=== PATIENT | male | born 1935 | race Caucasian/White ===

== ENCOUNTER 2017-06-10 10:32 | Inpatient (IN) | payer OTHER ==
[~2017-06-10] VITALS: Ht 185.4 cm; Wt 77.8 kg
[~2017-06-10 10:32] MED LIST: ALBU90OI INH; ALLO300 PO; AMOCLA875 PO; AMOX500 PO; ASPI81EC; Aspirin EC81 MG PO; CLARITIN10 MG PO; CYCL1OPSOA OP; DOXA4 PO; FLONASE ALLERG9.9 ML; FOSI10; FOSI10 PO; GABA300 PO; GLIM2 PO; HUMALOG KW200 UNIT/1; HYDACE5 PO; HYDR1TAB94 PO; HYDRA50 PO; METF850 PO; NAPR500 PO; OMEP20ER; OXYACE5T PO; PANT40 PO; PRED20 PO; SIMV10 PO; SULTRIDS PO; TAMS.4ER PO; TOBR.3OPSO OP; TOUJEO SOL300 UNIT/1 SC
[2017-06-10 12:08] LABS: BASOPHILS ABSOLUTE AUTO 0.04 K/mm3 (0.00-0.23); BASOPHILS PERCENT AUTO 1 % (0-2); EOSINOPHILS ABSOLUTE AUTO 0.28 K/mm3 (0.00-0.68); EOSINOPHILS PERCENT AUTO 5 % (0-6); Hematocrit 39.7 % (37.0-53.0); IMMATURE GRAN ABSOLUTE AUTO 0.01 K/mm3 (0.00-0.10); IMMATURE GRAN PERCENT AUTO 0 % (0-1); LYMPHOCYTES ABSOLUTE AUTO 1.09 K/mm3 (0.84-5.20); LYMPHOCYTES PERCENT AUTO 19 % (21-46); MONOCYTES ABSOLUTE AUTO 0.28 K/mm3 (0.16-1.47); MONOCYTES PERCENT AUTO 5 % (4-13); Mean Corpuscular HGB 29.4 pg (26.0-34.0); Mean Corpuscular HGB Conc 32.7 g/dL (31.5-36.5); Mean Corpuscular Volume 90 fL (80-100); Mean Platelet Volume 11.1 fL (9.1-12.4); NEUTROPHILS ABSOLUTE AUTO 4.08 K/mm3 (1.96-9.15); NEUTROPHILS PERCENT AUTO 71 % (41-73); Platelet Count 169 K/mm3 (150-400); RDW Coefficient Variation 13.1 % (11.7-14.2); RDW Standard Deviation 42.7 fL (35.1-46.3); Red Blood Cell Count 4.42 M/mm3 (4.30-5.90); White Blood Cell Count 5.78 K/mm3 (4.00-11.30)
[2017-06-10] MEDS ORDERED: METF850 PO (12:20)
[2017-06-10 12:25] LABS: Alanine Aminotransfer (ALT/SGP 24 U/L (12-78); Albumin, Blood 3.6 g/dL (3.4-5.0); Alk Phos 57 U/L (50-136); Anion Gap 8 mmol/L (6-16); Aspartate Aminotrans (AST/SGOT 13 U/L (12-37); Bilirubin, Total 0.3 mg/dL (0.1-1.0); Blood Urea Nitrogen 19 mg/dL (8-24); Bun/Creatinine Ratio 19.3 (12.0-20.0); CO2, Blood 24 mmol/L (21-32); Chloride, Blood 105 mmol/L (98-108); Creatinine, Blood 0.99 mg/dL (0.60-1.20); Globulin, Blood 3.7 g/dL (2.2-4.0); Glomerular Filtration Rate >60 (60-); Glucose, Blood 230 mg/dL (70-99); Potassium, Blood 4.9 mmol/L (3.5-5.5); Sodium, Blood 137 mmol/L (136-145); Total Protein, Blood 7.3 g/dL (6.4-8.2)
[2017-06-10 12:39] LABS: Source, Urine Clean Catch
[2017-06-10 12:48] LABS: Bilirubin, Urine Neg (Neg); Blood, Urine Neg (Neg); Glucose Qualitative, Urine 1+ (Neg); Ketones, Urine Neg (Neg); Leukocyte Esterase, Urine Neg (Neg); Nitrite, Urine Neg (Neg); Protein, Urine 1+ (Neg); Urobilinogen, Urine NORM (Normal)
[2017-06-10 13:01] LABS: Appearance, Urine Clear (Clear); Color, Urine Yellow (P-Yellow)
[2017-06-11 05:29] LABS: BASOPHILS ABSOLUTE AUTO 0.03 K/mm3 (0.00-0.23); BASOPHILS PERCENT AUTO 1 % (0-2); EOSINOPHILS ABSOLUTE AUTO 0.33 K/mm3 (0.00-0.68); EOSINOPHILS PERCENT AUTO 7 % (0-6); Hematocrit 36.3 % (37.0-53.0); Hemoglobin 11.6 g/dL (13.5-17.5); IMMATURE GRAN ABSOLUTE AUTO 0.02 K/mm3 (0.00-0.10); IMMATURE GRAN PERCENT AUTO 0 % (0-1); LYMPHOCYTES ABSOLUTE AUTO 1.16 K/mm3 (0.84-5.20); LYMPHOCYTES PERCENT AUTO 24 % (21-46); MONOCYTES PERCENT AUTO 6 % (4-13); Mean Corpuscular HGB 29.2 pg (26.0-34.0); Mean Corpuscular Volume 91 fL (80-100); Mean Platelet Volume 10.7 fL (9.1-12.4); NEUTROPHILS ABSOLUTE AUTO 2.97 K/mm3 (1.96-9.15); NEUTROPHILS PERCENT AUTO 62 % (41-73); Platelet Count 149 K/mm3 (150-400); RDW Coefficient Variation 13.3 % (11.7-14.2); RDW Standard Deviation 44.7 fL (35.1-46.3); Red Blood Cell Count 3.97 M/mm3 (4.30-5.90); White Blood Cell Count 4.81 K/mm3 (4.00-11.30)
[2017-06-11 06:00] LABS: Magnesium, Blood 1.8 mg/dL (1.6-2.4)
[2017-06-11 06:04] LABS: Anion Gap 8 mmol/L (6-16); Blood Urea Nitrogen 14 mg/dL (8-24); Bun/Creatinine Ratio 15.6 (12.0-20.0); CO2, Blood 25 mmol/L (21-32); Calcium, Blood 8.3 mg/dL (8.5-10.1); Chloride, Blood 110 mmol/L (98-108); Glomerular Filtration Rate >60 (60-); Glucose, Blood 96 mg/dL (70-99); Phosphorus, Blood 2.4 mg/dL (2.5-4.9); Potassium, Blood 4.4 mmol/L (3.5-5.5); Sodium, Blood 143 mmol/L (136-145)
[2017-06-12 04:37] LABS: Albumin, Blood 3.6 g/dL (3.4-5.0); Anion Gap 10 mmol/L (6-16); Blood Urea Nitrogen 14 mg/dL (8-24); Bun/Creatinine Ratio 15.3 (12.0-20.0); CO2, Blood 23 mmol/L (21-32); Calcium, Blood 9.2 mg/dL (8.5-10.1); Chloride, Blood 103 mmol/L (98-108); Creatinine, Blood 0.92 mg/dL (0.60-1.20); Glomerular Filtration Rate >60 (60-); Glucose, Blood 226 mg/dL (70-99); Magnesium, Blood 1.9 mg/dL (1.6-2.4); Phosphorus, Blood 1.3 mg/dL (2.5-4.9); Potassium, Blood 4.4 mmol/L (3.5-5.5); Sodium, Blood 136 mmol/L (136-145)
[2017-06-13 05:53] LABS: Anion Gap 8 mmol/L (6-16); Blood Urea Nitrogen 19 mg/dL (8-24); Bun/Creatinine Ratio 18.1 (12.0-20.0); CO2, Blood 25 mmol/L (21-32); Calcium, Blood 8.8 mg/dL (8.5-10.1); Chloride, Blood 106 mmol/L (98-108); Creatinine, Blood 1.05 mg/dL (0.60-1.20); Glomerular Filtration Rate >60 (60-); Glucose, Blood 91 mg/dL (70-99); Phosphorus, Blood 3.5 mg/dL (2.5-4.9); Sodium, Blood 139 mmol/L (136-145)
== END 2017-06-13 11:34 | disposition home or self-care (01) | DRG 440 ==
LOC: ER 10:32 → MEDS 13:37
PROVIDERS: Family Medicine; Hospitalist; Physician Assistant
DX: K85.90 Acute pancreatitis without necrosis or infection, unspecified (principal); E11.40 Type 2 diabetes mellitus with diabetic neuropathy, unspecified; E83.39 Other disorders of phosphorus metabolism; K21.9 Gastro-esophageal reflux disease without esophagitis; I10 Essential (primary) hypertension; Z79.84 Long term (current) use of oral hypoglycemic drugs; Z79.82 Long term (current) use of aspirin; Z79.4 Long term (current) use of insulin; Z79.51 Long term (current) use of inhaled steroids; Z79.899 Other long term (current) drug therapy; Z88.6 Allergy status to analgesic agent; Z88.8 Allergy status to other drugs, medicaments and biological substances; Z87.891 Personal history of nicotine dependence
CPT/HCPCS: 36415; 76705; 80048; 80053; 80069; 82947; 83690; 83735; 84100; 85025; 93005; 93010; 96374; 99285; C9113; J0360; J1170; J1650; J1815; J2405; J3480; J7030; J7040

== ENCOUNTER → 2017-06-26 | Outpatient (CLI) | payer OTHER | LOC: LAB 16:27 | DX: R10.9 Unspecified abdominal pain (principal) | CPT/HCPCS: 83690 ==

== ENCOUNTER → 2018-02-04 | Outpatient (CLI) | payer OTHER | END | disposition home or self-care (01) | LOC: PLD 15:03 → LAB SHORT 15:03 | DX: C44.320 Squamous cell carcinoma of skin of unspecified parts of face (principal) | CPT/HCPCS: 88305 ==

== ENCOUNTER 2018-05-05 07:27 | Day surgery (SDC) | payer OTHER ==
[~2018-05-05] VITALS: Ht 185.4 cm; Wt 88.3 kg
[2018-05-05] MEDS ORDERED: LOSA25 PO (08:01)
[2018-05-05] MEDS ORDERED: DOXA4 PO (08:02)
[2018-05-05] MEDS ORDERED: HYDR1TAB94 (08:02)
== END 2018-05-05 09:20 | disposition home or self-care (01) ==
LOC: ORSCSDS 07:27
PROVIDERS: Surgery
PROC: 0DBK8ZX Excision of Ascending Colon, Via Natural or Artificial Opening Endoscopic, Diagnostic (ICD-10-PCS; principal; 2018-05-05 08:30)
PROC: 0DBM8ZX Excision of Descending Colon, Via Natural or Artificial Opening Endoscopic, Diagnostic (ICD-10-PCS; principal; 2018-05-05 08:30)
DX: Z12.11 Encounter for screening for malignant neoplasm of colon (principal); D12.2 Benign neoplasm of ascending colon; D12.4 Benign neoplasm of descending colon; Z86.010 Personal history of colon polyps; E11.9 Type 2 diabetes mellitus without complications; Z79.82 Long term (current) use of aspirin; Z79.4 Long term (current) use of insulin; Z79.899 Other long term (current) drug therapy
CPT/HCPCS: 82947; 88305; J7120

== ENCOUNTER → 2018-08-06 | Outpatient (CLI) | payer OTHER ==
[~2018-08-06] MED LIST changes: +HYDR1TAB94; +LOSA25 PO
== END | disposition home or self-care (01) ==
LOC: LAB SHORT 12:53 → PLD 12:53
DX: L82.1 Other seborrheic keratosis (principal)
CPT/HCPCS: 88305

== ENCOUNTER → 2019-02-02 | Outpatient (CLI) | payer OTHER | END | disposition home or self-care (01) | LOC: PLD 13:26 → LAB SHORT 13:26 | DX: D48.5 Neoplasm of uncertain behavior of skin (principal) | CPT/HCPCS: 88305 ==

== ENCOUNTER → 2019-11-30 | Outpatient (CLI) | payer OTHER | END | disposition home or self-care (01) | LOC: LAB SHORT 15:25 → PLD 15:25 | DX: D04.39 Carcinoma in situ of skin of other parts of face (principal); L57.0 Actinic keratosis | CPT/HCPCS: 88305 ==

== ENCOUNTER → 2020-07-11 | Outpatient (CLI) | payer OTHER ==
[~2020-07-11] MED LIST changes: +ACYC400 PO; +AMLO5 PO; +ATOR40TA PO; +Aspir 8181 MG PO; +CELE200 PO; +FURO20 PO; +Flonase 0.05% N16 GM; +GLIM4 PO; +Glucophage 850850 MG PO; +HUMALOG100 UNIT/1; +INSULANI SC; +MULTIPLE VITAM1 EACH PO; +NITR.4SL SL; +Voltaren100 GM
[2020-07-11 13:36] LABS: BASOPHILS ABSOLUTE AUTO 0.04 K/mm3 (0.00-0.23); BASOPHILS PERCENT AUTO 1 % (0-2); EOSINOPHILS ABSOLUTE AUTO 0.38 K/mm3 (0.00-0.68); EOSINOPHILS PERCENT AUTO 6 % (0-6); IMMATURE GRAN ABSOLUTE AUTO 0.01 K/mm3 (0.00-0.10); IMMATURE GRAN PERCENT AUTO 0 % (0-1); LYMPHOCYTES ABSOLUTE AUTO 0.88 K/mm3 (0.84-5.20); LYMPHOCYTES PERCENT AUTO 14 % (21-46); MONOCYTES ABSOLUTE AUTO 0.26 K/mm3 (0.16-1.47); MONOCYTES PERCENT AUTO 4 % (4-13); Mean Corpuscular HGB 28.3 pg (26.0-34.0); Mean Corpuscular HGB Conc 31.7 g/dL (31.5-36.5); Mean Corpuscular Volume 89 fL (80-100); Mean Platelet Volume 11.6 fL (9.1-12.4); NEUTROPHILS ABSOLUTE AUTO 4.65 K/mm3 (1.96-9.15); NEUTROPHILS PERCENT AUTO 75 % (41-73); Platelet Count 238 K/mm3 (150-400); RDW Coefficient Variation 14.1 % (11.7-14.2); RDW Standard Deviation 45.1 fL (35.1-46.3); White Blood Cell Count 6.22 K/mm3 (4.00-11.30)
[2020-07-11 14:15] LABS: Alanine Aminotransfer (ALT/SGP 18 U/L (12-78); Albumin, Blood 3.8 g/dL (3.4-5.0); Albumin/Globulin Ratio 1.1 (0.8-1.8); Alk Phos 72 U/L (50-136); Anion Gap 6 mmol/L (6-16); Aspartate Aminotrans (AST/SGOT 17 U/L (12-37); Bilirubin, Total 0.6 mg/dL (0.1-1.0); Blood Urea Nitrogen 24 mg/dL (8-24); Bun/Creatinine Ratio 17.3 (12.0-20.0); CHOL/HDL RATIO 2.7; CO2, Blood 29 mmol/L (21-32); Calcium, Blood 9.4 mg/dL (8.5-10.1); Chloride, Blood 102 mmol/L (98-108); Cholesterol 113 mg/dL (50-200); Creatinine, Blood 1.39 mg/dL (0.60-1.20); Globulin, Blood 3.4 g/dL (2.2-4.0); Glomerular Filtration Rate 52 (60-); Glucose, Blood 249 mg/dL (70-99); HDL Cholesterol 42 mg/dL (>39); LDL/HDL RATIO 0.7; Low Density Lipoprotein Chol 29 mg/dL (0-110); Potassium, Blood 5.2 mmol/L (3.5-5.5); Sodium, Blood 137 mmol/L (136-145); Total Protein, Blood 7.2 g/dL (6.4-8.2); Triglycerides 211 mg/dL (30-160); Very Low Density Lipoprot Chol 42 mg/dL (6-32)
== END | disposition home or self-care (01) ==
LOC: LAB 11:15 → LAB SHORT 11:15
PROVIDERS: Registered Nurse
DX: E78.00 Pure hypercholesterolemia, unspecified (principal); E11.40 Type 2 diabetes mellitus with diabetic neuropathy, unspecified; R80.9 Proteinuria, unspecified; R60.9 Edema, unspecified; E11.42 Type 2 diabetes mellitus with diabetic polyneuropathy
CPT/HCPCS: 80053; 80061; 82043; 83036; 83880; 85025

== ENCOUNTER 2020-10-17 07:30 | Day surgery (SDC) | payer OTHER ==
[~2020-10-17] VITALS: Ht 185.4 cm; Wt 78.5 kg
== END 2020-10-17 09:31 | disposition home or self-care (01) ==
LOC: ORSCSDS 07:30
PROVIDERS: Surgery
PROC: 0DBM8ZX Excision of Descending Colon, Via Natural or Artificial Opening Endoscopic, Diagnostic (ICD-10-PCS; principal; 2020-10-17 08:45)
PROC: 0DBK8ZX Excision of Ascending Colon, Via Natural or Artificial Opening Endoscopic, Diagnostic (ICD-10-PCS; principal; 2020-10-17 08:45)
DX: R19.7 Diarrhea, unspecified (principal); D12.2 Benign neoplasm of ascending colon; D12.4 Benign neoplasm of descending colon; Z86.010 Personal history of colon polyps; E11.22 Type 2 diabetes mellitus with diabetic chronic kidney disease; I12.9 Hypertensive chronic kidney disease with stage 1 through stage 4 chronic kidney disease, or unspecified chronic kidney disease; N18.2 Chronic kidney disease, stage 2 (mild); Z79.4 Long term (current) use of insulin; Z79.899 Other long term (current) drug therapy; Z87.891 Personal history of nicotine dependence
CPT/HCPCS: 82947; 88305; J2704; J7120

== ENCOUNTER → 2020-11-22 | Outpatient (CLI) | payer OTHER ==
[2020-11-22 14:34] LABS: Alanine Aminotransfer (ALT/SGP 22 U/L (12-78); Albumin, Blood 3.8 g/dL (3.4-5.0); Albumin/Globulin Ratio 1.3 (0.8-1.8); Alk Phos 73 U/L (50-136); Anion Gap 6 mmol/L (6-16); Aspartate Aminotrans (AST/SGOT 14 U/L (12-37); Bilirubin, Total 0.5 mg/dL (0.1-1.0); Blood Urea Nitrogen 21 mg/dL (8-24); Bun/Creatinine Ratio 16.2 (12.0-20.0); CO2, Blood 26 mmol/L (21-32); Calcium, Blood 9.2 mg/dL (8.5-10.1); Chloride, Blood 100 mmol/L (98-108); Glomerular Filtration Rate 53 (60-); Glucose, Blood 440 mg/dL (70-99); PSA, %Free 40.6 %; PSA, Free 0.206 ng/mL; Prostate Specific Antigen 0.507 ng/mL (0.000-4.000); Sodium, Blood 132 mmol/L (136-145); Total Protein, Blood 6.8 g/dL (6.4-8.2)
== END | disposition home or self-care (01) ==
LOC: LAB SHORT 10:35 → LAB 10:35
PROVIDERS: Nurse Practitioner Family
DX: N40.1 Benign prostatic hyperplasia with lower urinary tract symptoms (principal); N13.8 Other obstructive and reflux uropathy
CPT/HCPCS: 80053; 84153; 84154

== ENCOUNTER 2021-02-16 09:11 | Day surgery (SDC) | payer OTHER ==
--- NOTE | 2021-02-16 10:47 | NUR ---
LING SUGAR BOILER PLACE L STERNAL AREA BY DR CHIN. PT TOLERATED PROCEDURE WELL. PT VERBALIZED UNDERSTANDING OF WRITTEN AND VERBAL D/C INST. PT TAKEN OUT OF THE HRT CENTER VIA W/C.
== END 2021-02-16 23:37 | disposition home or self-care (01) ==
LOC: MHTC 09:11
DX: R55 Syncope and collapse (principal)
CPT/HCPCS: 33285; C1764

== ENCOUNTER → 2021-06-19 | Outpatient (CLI) | payer OTHER ==
[2021-06-19 16:56] LABS: U Amphetamine Screen Not Detected; U Barbituate Screen Not Detected; U Benzodiazapine Screen Not Detected; U Buprenorphine Screen Not Detected; U Cannabinoids Screen DETECTED; U Cocaine Screen Not Detected; U Methadone Screen Not Detected; U Methamphetamine Screen Not Detected; U Opiates Screen DETECTED; U Oxycodone Screen Not Detected; U Phencyclidine Screen Not Detected; U Propoxyphene Screen Not Detected
== END | disposition home or self-care (01) ==
LOC: LAB SHORT 14:50 → LAB 14:50
PROVIDERS: Family Medicine
DX: Z51.81 Encounter for therapeutic drug level monitoring (principal); Z79.899 Other long term (current) drug therapy

== ENCOUNTER 2021-07-20 07:52 | Day surgery (SDC) | payer OTHER ==
[~2021-07-20] VITALS: Ht 185.4 cm; Wt 75.0 kg
--- NOTE | 2021-07-20 14:27 | NUR ---
PT DRESSED SELF WITH NO COMPLICATIONS. 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 NO SWELLING, OOZING OR HEMATOMA NOTED. PT WAS GIVEN 1GM ANCEF PRIOR TO DC. PT AND HIS STATE THEIR UNDERSTANDING OF DC AND SITE CARE INSTRUCTIONS AND BOTH DENY ANY QUESTIONS OR CONCERNS UPON DISCHARGE. IV DCD WITH CATH INTACT. PT PLACED IN ARM SLING. PT TAKEN TO EXIT VIA WHEELCHAIR.
== END 2021-07-20 14:20 | disposition home or self-care (01) ==
LOC: MHTC 07:52
DX: I49.5 Sick sinus syndrome (principal); E11.69 Type 2 diabetes mellitus with other specified complication; R55 Syncope and collapse; I12.9 Hypertensive chronic kidney disease with stage 1 through stage 4 chronic kidney disease, or unspecified chronic kidney disease; N18.2 Chronic kidney disease, stage 2 (mild); E11.22 Type 2 diabetes mellitus with diabetic chronic kidney disease; Z86.73 Personal history of transient ischemic attack (TIA), and cerebral infarction without residual deficits; Z79.4 Long term (current) use of insulin
CPT/HCPCS: 33208; 71046; 99152; 99153; C1785; C1786; C1894; C1898; J0690; J1580; J1644; J2250; J3010; J7030; J7040

== ENCOUNTER 2022-04-23 09:18 | Day surgery (SDC) | payer OTHER ==
[~2022-04-23] VITALS: Ht 185.4 cm; Wt 69.8 kg
== END 2022-04-23 11:23 | disposition home or self-care (01) ==
LOC: ORSCSDS 09:18
PROVIDERS: Surgery
PROC: 0DBL8ZX Excision of Transverse Colon, Via Natural or Artificial Opening Endoscopic, Diagnostic (ICD-10-PCS; principal; 2022-04-23 10:30)
PROC: 0DBK8ZX Excision of Ascending Colon, Via Natural or Artificial Opening Endoscopic, Diagnostic (ICD-10-PCS; principal; 2022-04-23 10:30)
DX: Z12.11 Encounter for screening for malignant neoplasm of colon (principal); Z86.010 Personal history of colon polyps; D12.2 Benign neoplasm of ascending colon; D12.3 Benign neoplasm of transverse colon; Z86.73 Personal history of transient ischemic attack (TIA), and cerebral infarction without residual deficits; E11.22 Type 2 diabetes mellitus with diabetic chronic kidney disease; I12.9 Hypertensive chronic kidney disease with stage 1 through stage 4 chronic kidney disease, or unspecified chronic kidney disease; N18.9 Chronic kidney disease, unspecified; Z79.899 Other long term (current) drug therapy
CPT/HCPCS: 82947; 88305; J2704; J7120

== ENCOUNTER → 2022-07-31 | Outpatient (CLI) | payer OTHER | END | disposition home or self-care (01) | LOC: LAB 08:51 → LAB SHORT 08:51 | DX: D03.4 Melanoma in situ of scalp and neck (principal); D22.4 Melanocytic nevi of scalp and neck; L57.8 Other skin changes due to chronic exposure to nonionizing radiation; L82.1 Other seborrheic keratosis | CPT/HCPCS: 88305 ==

== ENCOUNTER → 2022-11-05 | Outpatient (CLI) | payer OTHER ==
[2022-11-05 15:44] LABS: BASOPHILS ABSOLUTE AUTO 0.04 K/mm3 (0.00-0.23); BASOPHILS PERCENT AUTO 1 % (0-2); EOSINOPHILS ABSOLUTE AUTO 0.12 K/mm3 (0.00-0.68); EOSINOPHILS PERCENT AUTO 2 % (0-6); Hematocrit 35.7 % (37.0-53.0); Hemoglobin 11.6 g/dL (13.5-17.5); IMMATURE GRAN ABSOLUTE AUTO 0.02 K/mm3 (0.00-0.10); IMMATURE GRAN PERCENT AUTO 0 % (0-1); LYMPHOCYTES ABSOLUTE AUTO 1.48 K/mm3 (0.84-5.20); LYMPHOCYTES PERCENT AUTO 23 % (21-46); MONOCYTES ABSOLUTE AUTO 0.25 K/mm3 (0.16-1.47); MONOCYTES PERCENT AUTO 4 % (4-13); Mean Corpuscular HGB 27.8 pg (26.0-34.0); Mean Corpuscular HGB Conc 32.5 g/dL (31.5-36.5); Mean Corpuscular Volume 86 fL (80-100); Mean Platelet Volume 10.5 fL (9.1-12.4); NEUTROPHILS ABSOLUTE AUTO 4.42 K/mm3 (1.96-9.15); NEUTROPHILS PERCENT AUTO 70 % (41-73); Platelet Count 286 K/mm3 (150-400); RDW Coefficient Variation 14.5 % (11.7-14.2); RDW Standard Deviation 44.9 fL (35.1-46.3); Red Blood Cell Count 4.17 M/mm3 (4.30-5.90); White Blood Cell Count 6.33 K/mm3 (4.00-11.30)
[2022-11-05 18:37] LABS: Albumin, Blood 3.6 g/dL (3.4-5.0); Bilirubin, Total 0.4 mg/dL (0.1-1.0); Bun/Creatinine Ratio 18.8 (12.0-20.0); Calcium, Blood 10.1 mg/dL (8.5-10.1); Creatinine, Blood 1.49 mg/dL (0.60-1.20); Globulin, Blood 3.7 g/dL (2.2-4.0); Magnesium, Blood 1.9 mg/dL (1.6-2.4); Total Protein, Blood 7.3 g/dL (6.4-8.2)
== END ==
LOC: LAB 14:54 → LAB SHORT 14:54
PROVIDERS: Nurse Practitioner Family
DX: R19.7 Diarrhea, unspecified (principal)
CPT/HCPCS: 80053; 83735; 85025

== ENCOUNTER → 2022-11-07 | Outpatient (CLI) | payer OTHER ==
[2022-11-11 16:58] LABS: Adenovirus F 40/41 Not Detected (NOT DETECT); Astrovirus Not Detected (NOT DETECT); Campylobacter Sp Not Detected (NOT DETECT); Cryptosporidium Not Detected (NOT DETECT); Cyclospora Cayetanensis Not Detected (NOT DETECT); E. Coli O157 Not Detected (NOT DETECT); Entamoeba Histolytica Not Detected (NOT DETECT); Enteroaggregative E. coli-EAEC Not Detected (NOT DETECT); Enteropathogenic E. coli-EPEC Not Detected (NOT DETECT); Enterotoxigenic E. coli-ETEC Not Detected (NOT DETECT); Giardia Lamblia Not Detected (NOT DETECT); Norovirus GI/GII Not Detected (NOT DETECT); Plesiomonas Shigelloides Not Detected (NOT DETECT); Rotavirus A Not Detected (NOT DETECT); Salmonella Sp Not Detected (NOT DETECT); Sapovirus Not Detected (NOT DETECT); Shiga Toxin-prod E. coli-STEC Not Detected (NOT DETECT); Shigella/Enteroin E. coli-EIEC Not Detected (NOT DETECT); Vibrio Cholerae Not Detected (NOT DETECT); Vibrio Sp Not Detected (NOT DETECT); Yersinia Enterocolitica Not Detected (NOT DETECT)
== END | disposition home or self-care (01) ==
LOC: LAB SHORT 15:10 → LAB 15:10
PROVIDERS: Nurse Practitioner Family
DX: R19.7 Diarrhea, unspecified (principal)
CPT/HCPCS: 87507

== ENCOUNTER 2023-01-20 07:19 | Day surgery (SDC) | payer OTHER ==
[2023-01-20] VITALS (16 sets, daily range): BP systolic 126–221; BP diastolic 74–136
[~2023-01-20] VITALS: Ht 185.4 cm; Wt 75.8 kg
[~2023-01-20 07:19] MED LIST changes: +AMLO10 PO; +LANTUS SOL100 UNIT/1 SC; +METF500 PO; +Norco 5-325 Ta1 EACH PO; +PANTOPRAZOLE SO40 M1 PO; +XYZAL5 MG PO
[2023-01-20 08:08] LABS: Bun/Creatinine Ratio 14.4 (12.0-20.0); Calcium, Blood 9.5 mg/dL (8.5-10.1); Creatinine, Blood 1.53 mg/dL (0.60-1.20); Potassium, Blood 4.7 mmol/L (3.5-5.5)
--- NOTE | 2023-01-20 09:41 | NUR ---
PT BACK TO RECOVERY ROOM VIA RECLINER AFTER PROCEDURE. AWAKE AND ALERT, DENIES ANY PAIN OR DISCOMFORT. TWO PRELUDE BANDS PRESENT ON RIGHT WRIST DUE TO BLEEDING AND SWELLING AROUND SITE AFTER PROCEDURE. CALL LIGHT IN REACH, VISITING WITH PT.
--- NOTE | 2023-01-20 10:33 | NUR ---
PT MEDICATED WITH 10MG AMLODIPINE PER ORDERS. DID NOT TAKE NORMAL DOSE THIS AM AT HOME. CURRENT SYSTOLIC BP 201.
[2023-01-20] MEDS ORDERED: CLOP75 PO (11:08)
--- NOTE | 2023-01-20 11:40 | NUR ---
APPROX 8MLS AIR HAS BEEN REMOVED FROM PROXIMAL PRELUDE BAND ON RIGHT WRIST, 8MLS AIR HAS BEEN REMOVED FROM DISTAL PRELUDE BAND. BRUISING PRESENT OVER RADIAL SITE AND ALONG BORDERS OF PRELUDE BANDS, NO ACTIVE BLEEDING OR SWELLING NOTED.
--- NOTE | 2023-01-20 12:38 | NUR ---
ALL AIR HAS BEEN REMOVED FROM BOTH PRELUDE BANDS. NO ADDITIONAL BLEEDING OR SWELLING NOTED TO SITE. PT DENIES ANY PAIN OR DISCOMFORT AT THE SITE. REMAINS AT BEDSIDE. VSS, CALL LIGHT IN REACH.
--- NOTE | 2023-01-20 13:30 | NUR ---
R RADIAL SITE CLEANED AND DOT CLOTH APPLIED WITH COBAN PRESSURE DRESSING. BRUISING NOTED, NO HEMATOMA NOTED. IV D/C CATHETER INTACT. PT AND SPOUSE VERBALIZE D/C INSTRUCTIONS AND GIVEN WRITTEN INSTRUCTIONS.
== END 2023-01-20 13:45 | disposition home or self-care (01) ==
LOC: MHTC 07:19
PROVIDERS: Internal Medicine Interventional Cardiology
DX: I25.10 Atherosclerotic heart disease of native coronary artery without angina pectoris (principal); R07.9 Chest pain, unspecified; R94.39 Abnormal result of other cardiovascular function study; M54.2 Cervicalgia; Z95.0 Presence of cardiac pacemaker; I12.9 Hypertensive chronic kidney disease with stage 1 through stage 4 chronic kidney disease, or unspecified chronic kidney disease; N18.31 Chronic kidney disease, stage 3a; I49.5 Sick sinus syndrome; Z86.73 Personal history of transient ischemic attack (TIA), and cerebral infarction without residual deficits
CPT/HCPCS: 76937; 80048; 85347; 93458; 99152; 99153; A9270; C1725; C1769; C1874; C1887; C1894; C9600; J1644; J2250; J3010; J3246; J7030; J7050; Q9967

== ENCOUNTER 2024-06-17 12:31 | Inpatient (IN) | payer OTHER ==
[~2024-06-17] VITALS: Ht 185.4 cm; Wt 70.5 kg
[~2024-06-17 12:31] MED LIST changes: +CLOP75 PO; +Doxazosin Mesyla8 MG PO; +FURO40 PO; +METF500C PO; -Norco 5-325 Ta1 EACH PO; +Norco 7.5-3251 EACH PO; +ONDA4ODT MM; +ONDA4ODT SL; +PREG150 PO
[2024-06-17 13:02] LABS: BASOPHILS ABSOLUTE AUTO 0.04 K/mm3 (0.00-0.23); BASOPHILS PERCENT AUTO 1 % (0-2); EOSINOPHILS ABSOLUTE AUTO 0.22 K/mm3 (0.00-0.68); EOSINOPHILS PERCENT AUTO 4 % (0-6); Hematocrit 39.4 % (37.0-53.0); Hemoglobin 12.5 g/dL (13.5-17.5); IMMATURE GRAN ABSOLUTE AUTO 0.01 K/mm3 (0.00-0.10); IMMATURE GRAN PERCENT AUTO 0 % (0-1); LYMPHOCYTES ABSOLUTE AUTO 1.39 K/mm3 (0.84-5.20); LYMPHOCYTES PERCENT AUTO 24 % (21-46); MONOCYTES ABSOLUTE AUTO 0.42 K/mm3 (0.16-1.47); MONOCYTES PERCENT AUTO 7 % (4-13); Mean Corpuscular HGB Conc 31.7 g/dL (31.5-36.5); Mean Corpuscular Volume 88 fL (80-100); Mean Platelet Volume 10.2 fL (9.1-12.4); NEUTROPHILS ABSOLUTE AUTO 3.73 K/mm3 (1.96-9.15); NEUTROPHILS PERCENT AUTO 64 % (41-73); Platelet Count 284 K/mm3 (150-400); RDW Coefficient Variation 14.8 % (11.7-14.2); RDW Standard Deviation 48.3 fL (35.1-46.3); Red Blood Cell Count 4.46 M/mm3 (4.30-5.90); White Blood Cell Count 5.81 K/mm3 (4.00-11.30)
[2024-06-17 13:28] LABS: Albumin, Blood 3.2 g/dL (3.4-5.0); Albumin/Globulin Ratio 0.8 (0.8-1.8); Bilirubin, Total 0.4 mg/dL (0.1-1.0); Bun/Creatinine Ratio 9.7 (12.0-20.0); Calcium, Blood 9.5 mg/dL (8.5-10.1); Creatinine, Blood 1.76 mg/dL (0.60-1.20); Globulin, Blood 3.9 g/dL (2.2-4.0); Potassium, Blood 4.9 mmol/L (3.5-5.5); Total Protein, Blood 7.1 g/dL (6.4-8.2)
[2024-06-17] MEDS ORDERED: Aspirin 325 MG Tab PO ONE (13:45)
[2024-06-17] MEDS ORDERED: Nitroglycerin 0.4 MG SUBL SL PRN (13:45)
[2024-06-17] MEDS ORDERED: SEMGLEE (Y100 UNIT/2 SC (14:07)
[2024-06-17] MEDS ORDERED: METFORMIN HCL500 M2 PO (14:07)
[2024-06-17] MEDS ORDERED: HYDROcodone 7.5-APAP 325 TAB PO ONE (16:10)
[2024-06-17] MEDS ORDERED: Ondansetron HCl 2 MG / ML 2ML Vial IV PRN (17:10)
[2024-06-17] MEDS ORDERED: Magnesium Hydroxide Conc 10 ML UDC PO PRN (17:10)
[2024-06-17] MEDS ORDERED: FLU VACC TS2024-25(6MOS UP)/PF 45 MCG/0.5 ML SYRINGE IM PRN (17:10)
[2024-06-17] MEDS ORDERED: Dose Adjust by Pharmacy XX STA (18:00)
[2024-06-17] MEDS ORDERED: Heparin Sodium 5000 Units/ML 1ML MDV IV ONE (18:05)
[2024-06-17] MEDS ORDERED: Heparin Sodium,Porcine/0.5 NS 500 ML IV SCH (18:05)
[2024-06-17 18:08] LABS: Anti-Xa UFH, PHA Monitoring <0.10 IU/mL; International Normalized Ratio 0.96; Prothrombin Time Results 10.3 Sec (9.7-11.5)
[2024-06-17] MEDS ORDERED: Fluticasone 0.05% Nasal Spray PRN (19:35)
[2024-06-17] MEDS ORDERED: HYDROcodone 7.5-APAP 325 TAB PO PRN (19:40)
[2024-06-17 20:06] VITALS: BP 131/116
[2024-06-17 20:36] LABS: CHOL/HDL RATIO 3.6; Cholesterol 217 mg/dL (50-200); HDL Cholesterol 60 mg/dL (>39); LDL/HDL RATIO 2.3; Low Density Lipoprotein Chol 140 mg/dL (0-110); Triglycerides 84 mg/dL (30-160); Very Low Density Lipoprot Chol 16 mg/dL (6-32)
[2024-06-17] MEDS ORDERED: Insulin Glargine-Yfgn 100 Unit/mL 3 ML SYR SC SCH (21:00)
[2024-06-17] MEDS ORDERED: Insulin Human Lispro 100 Units/ML 3ML Syringe SC SCH (21:00)
[2024-06-17] MEDS ORDERED: Loratadine 10 MG Tab PO SCH (21:00)
[2024-06-17] MEDS ORDERED: DiphenhydrAMINE HCL 25 MG Cap PO ONE (22:30)
[2024-06-18] VITALS (34 sets, daily range): BP systolic 103–204; BP diastolic 56–106
[2024-06-18 00:20] LABS: BASOPHILS ABSOLUTE AUTO 0.04 K/mm3 (0.00-0.23); BASOPHILS PERCENT AUTO 1 % (0-2); EOSINOPHILS ABSOLUTE AUTO 0.19 K/mm3 (0.00-0.68); EOSINOPHILS PERCENT AUTO 4 % (0-6); Hematocrit 32.2 % (37.0-53.0); Hemoglobin 10.4 g/dL (13.5-17.5); IMMATURE GRAN ABSOLUTE AUTO 0.01 K/mm3 (0.00-0.10); IMMATURE GRAN PERCENT AUTO 0 % (0-1); LYMPHOCYTES ABSOLUTE AUTO 1.17 K/mm3 (0.84-5.20); LYMPHOCYTES PERCENT AUTO 23 % (21-46); MONOCYTES ABSOLUTE AUTO 0.29 K/mm3 (0.16-1.47); MONOCYTES PERCENT AUTO 6 % (4-13); Mean Corpuscular HGB 27.8 pg (26.0-34.0); Mean Corpuscular HGB Conc 32.3 g/dL (31.5-36.5); Mean Corpuscular Volume 86 fL (80-100); NEUTROPHILS ABSOLUTE AUTO 3.31 K/mm3 (1.96-9.15); NEUTROPHILS PERCENT AUTO 66 % (41-73); Platelet Count 210 K/mm3 (150-400); RDW Coefficient Variation 14.8 % (11.7-14.2); RDW Standard Deviation 47.1 fL (35.1-46.3); Red Blood Cell Count 3.74 M/mm3 (4.30-5.90); White Blood Cell Count 5.01 K/mm3 (4.00-11.30)
[2024-06-18 00:40] LABS: Bun/Creatinine Ratio 11.2 (12.0-20.0); Calcium, Blood 8.7 mg/dL (8.5-10.1); Creatinine, Blood 1.7 mg/dL (0.60-1.20); Potassium, Blood 4.5 mmol/L (3.5-5.5)
[2024-06-18] MEDS ORDERED: Clarify Drug Order XX ONE ×2 (00:55→07:30)
[2024-06-18] MEDS ORDERED: HydrALAZINE HCl 20 MG / ML 1ML Vial IV PRN (04:05)
--- NOTE | 2024-06-18 05:31 | NUR ---
SHIFT SUMMARY RECEIVED REPORT FROM ELISA MILES. PT ARRIVED TO PCU VIA [facility]. PT STOOD AND TRANSFERED FROM [facility] TO PCU BED. PT A&O X4, CALM, COOPERATIVE TO CARE. HR IN THE 60'S-70'S, PACED RHYTHM, HE DENIES HAVING ANY CP/PRESSURE, NUMB/TINGLING. PT REPORTS HIS HAS HIS CARD WITH HIS PACEMAKER INFORMATION AND HE WILL HAVE HER BRING THIS IN. PER REPORT PTS SBP IN THE 200'S, ONCE PT ARRIVED TO THE UNIT HIS SBP WAS 130. PT BLOOD PRESSURE THEN INCREASED TO THE 180'S, CALL PLACED TO PROVIDER, ORDER PLACED FOR PRN HYDRALAZINE. PT RECIEVED ONE DOSE OF HYDRALAZINE, WITH SOME IMPROVEMENT. O2 >92% ON RA, DENIES SOB. PT SBA ASSIST TO HELP WITH IV POLE MANAGMENT. PT RESTING T/O SHIFT. PT HAS BEEN NPO SINCE MIDNIGHT FOR POSSIBLE ANGIOGRAM THIS AM. WILL MONITOR PT AND REPORT TO ONCDYLON MILES.
[2024-06-18] MEDS ORDERED: Pantoprazole Sodium 40 MG Tab PO SCH ×2 (06:00→20:30)
[2024-06-18] MEDS ORDERED: Dextrose 50% 50 ML Vial IV ONE (08:40)
[2024-06-18] MEDS ORDERED: Aspirin 81 MG Chew PO SCH ×3 (09:00→21:00)
[2024-06-18] MEDS ORDERED: Furosemide 40 MG Tab PO SCH (09:00)
[2024-06-18] MEDS ORDERED: AmLODIPine Besylate 5 MG Tab PO SCH (09:00)
[2024-06-18] MEDS ORDERED: Atorvastatin 40 MG Tab PO SCH (09:00)
[2024-06-18] MEDS ORDERED: NS 250 ML IV SCH (12:30)
[2024-06-18] MEDS ORDERED: FentaNYL Citrate 50 MCG/ML 2 ML Injection ONE ×2 (12:54→15:52)
[2024-06-18] MEDS ORDERED: Verapamil HCL 2.5 MG/ML 2ML Injection ONE (12:54)
[2024-06-18] MEDS ORDERED: Midazolam HCl 1MG / ML 2ML Vial ONE (12:54)
[2024-06-18] MEDS ORDERED: NS 250 ML IV ONE (12:55)
[2024-06-18] MEDS ORDERED: NS 2,000 ML IV ONE (12:55)
[2024-06-18] MEDS ORDERED: Heparin Sodium 1000 Units/ML 10ML MDV ONE ×2 (12:55→14:21)
[2024-06-18] MEDS ORDERED: Nitroglycerin 2 MG/20 ML BTL ONE (12:55)
[2024-06-18] MEDS ORDERED: Ticagrelor 90 MG TABLET ONE (14:06)
[2024-06-18] MEDS ORDERED: Atropine Sulfate 0.1 MG/ML 10ML SYR ONE (14:11)
[2024-06-18] MEDS ORDERED: Tirofiban HCL Monohydrate 3.75 MG/15 ML Vial ONE (14:48)
[2024-06-18] MEDS ORDERED: Phenylephrine HCl 100 MCG/ML-NS 10MLSYR (1MG/10ML) ONE (14:51)
[2024-06-18] MEDS ORDERED: Nitroglycerin 0.4 MG SUBL ONE (15:21)
[2024-06-18] MEDS ORDERED: Nitroglycerin/D5W 250 ML IV ONE (15:29)
[2024-06-18] MEDS ORDERED: NS 1,000 ML IV SCH (15:50)
[2024-06-18] MEDS ORDERED: Mag Hydrox/AL Hydrox/Simeth 30 ML UDC ONE (15:52)
--- NOTE | 2024-06-18 16:17 | NUR ---
SHIFT SUMMARY/ICU TRANSFER PT A&O X4, CALM, COOPERATIVE TO CARE. HR IN THE 60'S-70'S, PACED RHYTHM, HE DENIES HAVING ANY CP/PRESSURE, NUMB/TINGLING. HE DOES COMPLAIN IF CHRONIC BACK PAIN THAT WAS RELIEVED BY NORCO. HE IS ABLE TO AMBULATE TO THE RESTROOM. HE IS ON HEPARIN GTT. HE WAS PICKED UP BY THE CARDIAC TEAM TO HAVE ANGIO. WHILE OFF THE UNIT HE WAS MADE ICU STATUS SO REPORT WAS GIVEN TO THE ICU NURSE AND HIS WAS INFORMED.
[2024-06-18] MEDS ORDERED: FentaNYL Citrate 50 MCG/ML 2 ML Injection IV ONE (17:00)
--- NOTE | 2024-06-18 18:18 | NUR ---
Transfer from HC/Shift Summary: Patient transferred from HC to ICU rm 3 at 1620hr. Alert and oriented to self and place, but difficult to obtain good assessment as patient is extremely BLACKFEET. Rt radial TR band in place, no s/s of bleeding or hematoma. Patient arrived with Nitro gtt at 10mcg/min, and denied any chest pain. Patient then turned [id number] and received bedside echo. Patient then began c/o chest pain, but unable to give pain score, stating "it just hurts", also began getting restless in bed. Nitro titrated up to 40mcg/min and x1 prn fentanyl given with good, but short effect. Patient again became restless, attempting to climb out of bed, needing to void. Instruction to remain in bed and use urinal ineffective. Patient then 2-person assisted to stand and void, then sit in recliner. Patient then appeared comfortable for approx 1hr, but again became restless, stating "i need to get up, I feel light headed". Instructed to remain sitting, pad-alarm in place. Systolic BP also increased to 190's. Call placed to Dr. Kam, who stated he would come to assess patient soon. Nitro gtt titrated from 40 to 50mcg/min. Patient now appears comfortable, resting in recliner with eyes closed. Will continue to monitor.
--- NOTE | 2024-06-18 19:45 | NUR ---
DR HARRIS AT BEDSIDE. PT CONTINUES TO COMPLAIN OF CHEST PAIN/DISCOMFORT. ORDERS GIVEN, SEE EMAR
[2024-06-18] MEDS ORDERED: Colchicine 0.6 MG TAB PO SCH (20:30)
[2024-06-18] MEDS ORDERED: Sodium Nitroprusside 50 MG in Dextrose 5% 250 ML IV SCH (20:35)
--- NOTE | 2024-06-18 21:30 | NUR ---
AT APPX 2100, PT HAD A RHYTHM, CHANGE, BECOMING TACHYCARDIC AND HYPOTENSIVE VERY QUICKLY. HE WAS COMPLAINING OF CHEST PAIN AND DIZZINESS. THE NITRO DRIP WAS STOPPED IMMEDIATLY AND DR HARRIS WAS CALLED. MD CAME TO BEDSIDE AND PT RETURNED TO BASELINE RHYTHM AND BP W/OUT INTERVENTION. HE STILL COMPLAINS OF CHEST PAIN/PRESSURE WHICH MD IS AWARE OF. ALL DRIPS STOPPED AT THIS TIME PER MD ORDER. EKG WAS DONE EARLIER AND GIVEN TO MD WELL.
[2024-06-18] MEDS ORDERED: Aspirin 325 MG Tab PO SCH (22:00)
[2024-06-18] MEDS ORDERED: Clopidogrel Bisulfate 300 MG Cap PO SCH (22:00)
[2024-06-19] VITALS (43 sets, daily range): BP systolic 84–198; BP diastolic 43–103
--- NOTE | 2024-06-19 | NUR ---
PT IS RESTING AT THIS TIME. HR 70S W/ BP WNL. OXYGEN SAT 99% ON ROOM AIR. NO COMPLAINTS OF CHEST PAIN/PRESSURE AT THIS TIME. NPO PER MD ORDER
[2024-06-19] MEDS ORDERED: HYDROcodone 7.5-APAP 325 TAB PO PRN (02:30)
[2024-06-19 04:24] LABS: Hematocrit 32.6 % (37.0-53.0); Hemoglobin 10.6 g/dL (13.5-17.5); Mean Platelet Volume 10.2 fL (9.1-12.4); Platelet Count 265 K/mm3 (150-400)
[2024-06-19 04:41] LABS: C-REACTIVE PROTEIN, EXT RANGE <0.290 mg/dL (0.000-0.300)
--- NOTE | 2024-06-19 05:00 | NUR ---
SPOKE TO DR HARRIS ABOUT HEPARIN GTT, STATES PT DOES NOT NEED TO BE ON HEPARIN GTT.
--- NOTE | 2024-06-19 06:09 | NUR ---
SHIFT SUMMERY PT WAS EXPERIENCING SIGNIFICANT CHEST PAIN AT THE BEGINNING OF THE SHIFT. DR HARRIS WAS AWARE AND EXAMINED THE PT MULTIPLE TIMES AT THE BEDSIDE. HE WAS ON A NITROGLYCERIN DRIP AT THE BEGINNING OF MY SHIFT WHICH DR Heaton WANTED CHANGED TO NITROPRESS. BEFORE I COULD TRANSITION THE DRIPS THE PT BECAME UNSTABLE W/HYPOTENSION AND TACHYCARDIA, REPORTING DIZZINESS AND CHEST PAIN. DR Heaton WAS AT BEDSIDE AND PT RETURNED TO BASELINE W/OUT INTERVENTION. PT HAS BEEN GIVEN MEDICATION OVERNIGHT AND HAS RESTED W/NO FUTHER INSTANCES OF INSTABILITY. HE IS ALERT AND ORIENTED X4 W/SOME FORGETFULNESS AND IMPULSIVENESS. PT HAS BEEN NPO SINCE MIDNIGHT PER NPO ORDER. RIGHT RADIAL CATH SITE W/OUT SWELLING OR HEMATOMA.
[2024-06-19] MEDS ORDERED: NIFEdipine 60 MG TabCR PO SCH (08:00)
[2024-06-19] MEDS ORDERED: Clopidogrel Bisulfate 300 MG Cap PO SCH (09:00)
[2024-06-19] MEDS ORDERED: Carvedilol 6.25 MG Tab PO SCH (09:30)
[2024-06-19 09:34] LABS: Bun/Creatinine Ratio 10.5 (12.0-20.0); Creatinine, Blood 1.9 mg/dL (0.60-1.20); Potassium, Blood 4.7 mmol/L (3.5-5.5)
--- NOTE | 2024-06-19 09:40 | NUR ---
[place]: Patient is alert & pleasant, extremely hard of hearing. He complains of some back pain for which I gave a Tyler for pain relief. He is A paced in the 60s & continues with hypertension - discussed with both Dr. GARCIA & Dr. Sosa - see emar for medication administration. On room air with oxygen saturations of 100%, clear lung sounds. Voiding appropriately. Minimal breakfast intake. PIV x2 in place, OOB to chair with one-person assist. Will continue to monitor.
[2024-06-19] MEDS ORDERED: LORazepam 0.5 MG Tab PO PRN (16:15)
--- NOTE | 2024-06-19 17:46 | NUR ---
Neuro intact but extremely hard of hearing & has had some ongoing anxiety since about 1300. Initially associated with a drop in blood pressure but has persisted since blood pressures have normalized. No chest pain. Dr. Sosa & Dr. GARCIA both notified. A paced in the 60s. Hypertensive this morning as high as 200 systolic but then dropped to a systolic in the 80-90s. Dr. GARCIA notified of this as well. Hold parameters updated. He is on room air with no issues. Voiding appropriately & eating. PIV x2 in place.
[2024-06-20] VITALS (23 sets, daily range): BP systolic 109–171; BP diastolic 56–98
[2024-06-20 03:45] LABS: Hematocrit 33.3 % (37.0-53.0); Hemoglobin 10.9 g/dL (13.5-17.5); Mean Corpuscular HGB 28.2 pg (26.0-34.0); Mean Corpuscular HGB Conc 32.7 g/dL (31.5-36.5); Mean Corpuscular Volume 86 fL (80-100); Mean Platelet Volume 10.2 fL (9.1-12.4); Platelet Count 275 K/mm3 (150-400); RDW Coefficient Variation 15.3 % (11.7-14.2); Red Blood Cell Count 3.87 M/mm3 (4.30-5.90); White Blood Cell Count 7.03 K/mm3 (4.00-11.30)
[2024-06-20 03:57] LABS: Albumin, Blood 3.1 g/dL (3.4-5.0); Anion Gap 11 mmol/L (3-11); Blood Urea Nitrogen 36 mg/dL (8-24); Bun/Creatinine Ratio 13.1 (12.0-20.0); CO2, Blood 23 mmol/L (21-32); Calcium, Blood 8.7 mg/dL (8.5-10.1); Chloride, Blood 104 mmol/L (98-108); Creatinine, Blood 2.75 mg/dL (0.60-1.20); Glomerular Filtration Rate 22 (60-); Glucose, Blood 153 mg/dL (70-99); Phosphorus, Blood 5.2 mg/dL (2.5-4.9); Potassium, Blood 4.4 mmol/L (3.5-5.5); Sodium, Blood 134 mmol/L (136-145)
--- NOTE | 2024-06-20 05:49 | NUR ---
SHIFT SUMMERY PT IS ALERT AND ORIENTED X 3. OXYGEN SAT >95% ON ROOM AIR. NO COMPLAINTS OF CHEST PAIN/PRESSURE OVERNIGHT. VOIDS TO URINAL. PT HAS BEEN PACED ON THE BIODIESEL OPERATIONS MANAGER. BP WNL. NO ACUTE CHANGES OVERNIGHT.
[2024-06-20] MEDS ORDERED: NS 500 ML IV SCH (07:45)
--- NOTE | 2024-06-20 08:20 | NUR ---
[place] of care: He is alert & oriented, extremely hard of hearing. OOB to chair with one assist. He is in A-paced rhythm in the 60s. SBP 150s. Oxygen saturation 99% on room air. Had an episode of nausea & vomiting this morning - zofran administered. Holding off on breakfast. Voiding in urinal, no BM. PIV x2 in place. No chest pain, SOB, or other cardiac symptoms. Will continue to monitor.
[2024-06-20] MEDS ORDERED: NS 1,000 ML IV SCH (08:50)
[2024-06-20] MEDS ORDERED: Isosorbide Mononitrate 30 MG TABCR PO SCH (09:00)
[2024-06-20] MEDS ORDERED: Colchicine 0.6 MG TAB PO SCH ×2 (09:00)
[2024-06-20] MEDS ORDERED: Clopidogrel Bisulfate 75 MG Tab PO SCH (09:00)
[2024-06-20] MEDS ORDERED: Aspirin 81 MG Chew PO SCH (09:00)
[2024-06-20] MEDS ORDERED: HydrALAZINE HCl 20 MG / ML 1ML Vial IV PRN (09:20)
--- NOTE | 2024-06-20 10:59 | NUR ---
[facility] VISIT: MET WITH PT IN HIS ROOM. REVA IS SITTING IN CHAIR AT BEDSIDE. HE IS WATCHING TV. PT IS VERY [place]. DISCUSSED SYMPTOM MANAGMENT. PT REPORTS R SIDE NECK PAIN. APPLIED GENTLE MASSAGE TO AREA AND OBTAINED A NECK PILLOW FOR PT TO USE WHILE IN BED FOR ADDITIONAL NECK SUPPORT. PT REPORTS FEELING A LITTLE ANXIOUS AND STATES BECAUSE HE IS IN THE HOSPITAL. DISCUSSED CONCERNS WITH BS RN WHO WAS PLACING A CALL TO MD ABOUT PT ANXIETY. DISCUSSED CODE STATUS WITH PT. EDUCATED IN DIFFERENCE BETWEEN FULL CODE AND DNR STATUS. PT UNDECIDED AT THIS TIME AND WILL REMAIN A FULL CODE.
[2024-06-20 12:36] LABS: Anion Gap 12 mmol/L (3-11); Blood Urea Nitrogen 36 mg/dL (8-24); Bun/Creatinine Ratio 13.9 (12.0-20.0); CO2, Blood 23 mmol/L (21-32); Calcium, Blood 8.4 mg/dL (8.5-10.1); Chloride, Blood 105 mmol/L (98-108); Creatinine, Blood 2.59 mg/dL (0.60-1.20); Glomerular Filtration Rate 23 (60-); Glucose, Blood 139 mg/dL (70-99); Phosphorus, Blood 4.5 mg/dL (2.5-4.9); Potassium, Blood 4.1 mmol/L (3.5-5.5); Sodium, Blood 136 mmol/L (136-145)
--- NOTE | 2024-06-20 17:40 | NUR ---
Shift summary: Awaiting bed on PCU. Alert & oriented. OOB multiple times & walked the walker with walker & one-person assist. Very hard of hearing. Is complaining of neck/back pain pretty consistently - see emar for medication administration. In A-paced rhythm in the 60s. Blood pressures much better controlled today. On room air with oxygen saturation 99-100%. Voiding in urinal. Good PO intake. R radial site stable. PIV to L wrist. Updated patient & on plan of care. Will continue to monitor.
[2024-06-20] MEDS ORDERED: NIFEdipine 30 MG TabCR PO SCH (18:00)
[2024-06-20] MEDS ORDERED: Heparin Sodium 5000 Units/ML 1ML MDV SC SCH (21:00)
[2024-06-21] VITALS (12 sets, daily range): BP systolic 109–150; BP diastolic 51–71
[2024-06-21 05:52] LABS: Anion Gap 10 mmol/L (3-11); Blood Urea Nitrogen 42 mg/dL (8-24); Bun/Creatinine Ratio 15.2 (12.0-20.0); CO2, Blood 23 mmol/L (21-32); Calcium, Blood 8.4 mg/dL (8.5-10.1); Chloride, Blood 108 mmol/L (98-108); Creatinine, Blood 2.76 mg/dL (0.60-1.20); Glomerular Filtration Rate 22 (60-); Glucose, Blood 48 mg/dL (70-99); Potassium, Blood 3.5 mmol/L (3.5-5.5); Sodium, Blood 137 mmol/L (136-145)
[2024-06-21] MEDS ORDERED: Pantoprazole Sodium 20 MG Tab PO SCH (06:00)
[2024-06-21] MEDS ORDERED: Dextrose 50% 50 ML Vial IV ONE (06:25)
--- NOTE | 2024-06-21 06:47 | NUR ---
SHIFT SUMMMERY PT IS ALERT AND ORIENTED X4, VERY [place]. AMBULATORY W/SOME ASSIST. NO CHEST PAIN/PRESSURE OR N/V OVERNIGHT. PACED RHYTHM ON FISHERIES MANAGER, BP WNL. AFEBRILE. OXYGEN SAT 98% ON ROOM AIR. PT HAD CRITICAL GLUCOSE ON AM LABS. RECHECKED POC AND WAS 63. PT WAS GIVEN 2 APPLE JUICES. GLUCOSE WAS RECHECKED AND WAS STILL 63. DR ALEJANDRO WAS NOTIFIED. ORDERS GIVEN FOR D50. GIVEN TO PT AND WILL RECHECK
[2024-06-21] MEDS ORDERED: NIFEdipine 60 MG TabCR PO SCH (08:00)
[2024-06-21] MEDS ORDERED: Potassium Chloride 20 MEQ TabCR PO ONE (08:00)
[2024-06-21] MEDS ORDERED: NS 1,000 ML IV SCH (09:05)
--- NOTE | 2024-06-21 09:11 | NUR ---
THIS RN ASSUMED CARE OF PT AT 0700. PT IS ALERT AND ORIENTED X4, FOLLOWS COMMANDS AND CALLS APPROPRIATELY. PT HEART RATE IS ATRIAL PACED AT 60, BLOOD PRESSURE STABLE AT 141/70, PT DENIES CHEST PAIN UPON ASSESSMENT. PT IS ON ROOM AIR, SATTING >95%, SOUNDS CLEAR THROUGHOUT AND DENIES SHORTNESS OF BREATH UPON ASSESSMENT. PT WAS ABLE TO VOID PER URINAL, PT IS VERY A LITTLE WEAK AND JUST NEEDS HELP WITH CORDS. THIS RN HELD MORNING INSULIN DUE TO HYPOGLYCEMIC EPISODE LAST NIGHT ON PUBLIC FINANCE SPECIALIST. DR. KIDD WAS NOTIFIED AND OKAY WITH NO INSULIN THIS AM. NO OTHER INTERVENTIONS AT THIS TIME. PLAN OF CARE CONTINUED.
[2024-06-21 14:44] LABS: Bun/Creatinine Ratio 16.1 (12.0-20.0); Calcium, Blood 8.5 mg/dL (8.5-10.1); Creatinine, Blood 2.79 mg/dL (0.60-1.20); Potassium, Blood 4.7 mmol/L (3.5-5.5)
--- NOTE | 2024-06-21 17:45 | NUR ---
PT SUMMARY PT IS ALERT AND ORIENTED X4, HOSPITALIST SAW PT BEDSIDE, WANTS TO KEEP PT OVERNIGHT TO MAKE SURE PT DOES NOT HAVE ANOTHER HYPOGLYCEMIC EPISODE. NO OTHER ACUTE EVENTS THROUGHOUT THE DAY. NO OTHER INTERVENTIONS AT THIS TIME. PLAN OF CARE CONTINUED.
[2024-06-22] VITALS (10 sets, daily range): BP systolic 112–170; BP diastolic 57–104
[2024-06-22 04:22] LABS: Albumin, Blood 2.9 g/dL (3.4-5.0); Anion Gap 12 mmol/L (3-11); Blood Urea Nitrogen 43 mg/dL (8-24); Bun/Creatinine Ratio 18.2 (12.0-20.0); CO2, Blood 21 mmol/L (21-32); Calcium, Blood 8.4 mg/dL (8.5-10.1); Chloride, Blood 107 mmol/L (98-108); Creatinine, Blood 2.36 mg/dL (0.60-1.20); Glomerular Filtration Rate 26 (60-); Glucose, Blood 114 mg/dL (70-99); Phosphorus, Blood 3.6 mg/dL (2.5-4.9); Potassium, Blood 3.8 mmol/L (3.5-5.5); Sodium, Blood 136 mmol/L (136-145)
--- NOTE | 2024-06-22 05:56 | NUR ---
SHIFT SUMMARY PATIENT SLEPT THROUGH OUT SHIFT. PATIENT HAS BEEN IN PACED RHYTHM OF 60. SBP 130-140'S. USES URINAL AND TOILET IN ROOM. USE CALL WHEN NEEDED. HAD PERIPHERAL LEFT HAND 20G SALINE LOCKED. PATIENT IS A&O AND COOPERATES IN CARE. CALL LIGHT WITHIN REACH.
[2024-06-22] MEDS ORDERED: Potassium Chloride 20 MEQ TabCR PO ONE (08:00)
[2024-06-22] MEDS ORDERED: Lactated Ringer's 1,000 ML IV SCH (11:20)
[2024-06-22 12:59] LABS: Bun/Creatinine Ratio 19.2 (12.0-20.0); Calcium, Blood 8.5 mg/dL (8.5-10.1); Creatinine, Blood 2.13 mg/dL (0.60-1.20); Potassium, Blood 4.2 mmol/L (3.5-5.5)
[2024-06-22] MEDS ORDERED: ASPI81CH PO (13:32)
[2024-06-22] MEDS ORDERED: ATOR80 (13:33)
[2024-06-22] MEDS ORDERED: CARV6.25 PO (13:34)
[2024-06-22] MEDS ORDERED: Plavix75 MG PO (13:34)
[2024-06-22] MEDS ORDERED: Isosorbide Mono30 MG PO (13:34)
[2024-06-22] MEDS ORDERED: ADALAT CC30 M1 PO (13:35)
[2024-06-22] MEDS ORDERED: NIFE60ER PO (13:35)
--- NOTE | 2024-06-22 15:09 | NUR ---
PT DISCHARGE TO HOME WITH DISCHARGE ORDERS. DR GARCIA CAME IN TO SEE PT TODAY AROUND LUNCH TIME CLEARED PT FOR DISCHARGE, ORDERED SOME FLUIDS TO RUN WHILE WAITING FOR DISCHARGE, 435MLS TOTAL FLUIDS INFUSED. PT HAS BEEN EATING WITH NO ISSUES, VITALS HRR PACED AT 60'S, SBP WAS ELEVATED AT 180'S, THIS MORNING TRENDED DOWN TO 110-130'S AFTER MORNING MEDS WAS GIVEN. PT DENIES ANY CHEST PAIN/PRESSURE. PRESCRIPTIONS SENT TO [facility] FOR PHARMACY. ALL NEW MEDICATION AND DISCHARGE INSTRUCTIONS DISCLOSED WITH BOTH PT AND THE . ALL BELONGINGS SENT WITH THE PT. [facility]
[2024-06-22] MEDS ORDERED: Isosorbide Mononitrate 30 MG TABCR PO SCH (18:00)
== END 2024-06-22 14:59 | disposition home or self-care (01) | DRG 324 ==
LOC: ER 12:31 → PCU 12:33 → ICUE 06-18 16:40
PROVIDERS: Hospitalist; Internal Medicine; Physician Assistant; Student in an Organized Health Care Education/Training Program; ADMIT Internal Medicine
PROC: 027035Z Dilation of Coronary Artery, One Artery with Two Drug-eluting Intraluminal Devices, Percutaneous Approach (ICD-10-PCS; principal; 2024-06-18)
PROC: 02F03ZZ Fragmentation in Coronary Artery, One Artery, Percutaneous Approach (ICD-10-PCS; 2024-06-18)
PROC: B240ZZ3 Ultrasonography of Single Coronary Artery, Intravascular (ICD-10-PCS; 2024-06-18)
PROC: 4A023N7 Measurement of Cardiac Sampling and Pressure, Left Heart, Percutaneous Approach (ICD-10-PCS; 2024-06-18)
PROC: B2111ZZ Fluoroscopy of Multiple Coronary Arteries using Low Osmolar Contrast (ICD-10-PCS; 2024-06-18)
DX: I25.110 Atherosclerotic heart disease of native coronary artery with unstable angina pectoris (principal); N17.9 Acute kidney failure, unspecified; I50.32 Chronic diastolic (congestive) heart failure; I13.0 Hypertensive heart and chronic kidney disease with heart failure and stage 1 through stage 4 chronic kidney disease, or unspecified chronic kidney disease; N18.32 Chronic kidney disease, stage 3b; E11.649 Type 2 diabetes mellitus with hypoglycemia without coma; M10.9 Gout, unspecified; K21.9 Gastro-esophageal reflux disease without esophagitis; D63.1 Anemia in chronic kidney disease; M54.50 Low back pain, unspecified; E11.22 Type 2 diabetes mellitus with diabetic chronic kidney disease; E11.40 Type 2 diabetes mellitus with diabetic neuropathy, unspecified; Z98.42 Cataract extraction status, left eye; Z98.41 Cataract extraction status, right eye; Z95.0 Presence of cardiac pacemaker; Z95.5 Presence of coronary angioplasty implant and graft; Z88.8 Allergy status to other drugs, medicaments and biological substances; Z79.4 Long term (current) use of insulin; Z79.82 Long term (current) use of aspirin; Z79.891 Long term (current) use of opiate analgesic; Z90.49 Acquired absence of other specified parts of digestive tract; Z98.890 Other specified postprocedural states; Z98.1 Arthrodesis status; Z79.84 Long term (current) use of oral hypoglycemic drugs; Z79.85 Long-term (current) use of injectable non-insulin antidiabetic drugs; Z87.891 Personal history of nicotine dependence; Z87.19 Personal history of other diseases of the digestive system; Z87.442 Personal history of urinary calculi; Z86.73 Personal history of transient ischemic attack (TIA), and cerebral infarction without residual deficits
CPT/HCPCS: 36415; 71045; 76937; 80048; 80053; 80061; 80069; 82570; 82947; 83036; 83735; 84156; 84484; 85014; 85018; 85025; 85027; 85049; 85347; 85520; 85610; 85730; 86140; 86141; 92972; 92978; 93005; 93010; 93306; 93458; 93975; 94760; 96365; 96366; 96375; 96376; 99152; 99153; 99285-25; A9270; C1725; C1753; C1761; C1769; C1874; C1887; C1894; C9600; G0378; J0360; J0461; J1644; J1815; J2250; J2371; J2405; J2470; J3010; J3246; J7030; J7050; J7120; J7799; Q9967

== ENCOUNTER → 2024-08-26 | Outpatient (CLI) | payer OTHER ==
[~2024-08-26] MED LIST changes: +ADALAT CC30 M1 PO; +ASPI81CH PO; +ATOR80; +CARV6.25 PO; +Isosorbide Mono30 MG PO; +METFORMIN HCL500 M2 PO; +NIFE60ER PO; +Plavix75 MG PO; +SEMGLEE (Y100 UNIT/2 SC
[2024-08-27 10:13] LABS: BASOPHILS ABSOLUTE AUTO 0.03 K/mm3 (0.00-0.23); BASOPHILS PERCENT AUTO 1 % (0-2); EOSINOPHILS ABSOLUTE AUTO 0.13 K/mm3 (0.00-0.68); EOSINOPHILS PERCENT AUTO 3 % (0-6); Hematocrit 32.2 % (37.0-53.0); IMMATURE GRAN PERCENT AUTO 0 % (0-1); LYMPHOCYTES ABSOLUTE AUTO 0.95 K/mm3 (0.84-5.20); LYMPHOCYTES PERCENT AUTO 22 % (21-46); MONOCYTES ABSOLUTE AUTO 0.26 K/mm3 (0.16-1.47); MONOCYTES PERCENT AUTO 6 % (4-13); Mean Corpuscular HGB 27.2 pg (26.0-34.0); Mean Corpuscular HGB Conc 31.1 g/dL (31.5-36.5); Mean Corpuscular Volume 88 fL (80-100); Mean Platelet Volume 10.9 fL (9.1-12.4); NEUTROPHILS ABSOLUTE AUTO 2.98 K/mm3 (1.96-9.15); NEUTROPHILS PERCENT AUTO 69 % (41-73); Platelet Count 242 K/mm3 (150-400); RDW Coefficient Variation 14.9 % (11.7-14.2); RDW Standard Deviation 47.1 fL (35.1-46.3); Red Blood Cell Count 3.67 M/mm3 (4.30-5.90); White Blood Cell Count 4.35 K/mm3 (4.00-11.30)
[2024-08-27 11:10] LABS: Alanine Aminotransfer (ALT/SGP 18 U/L (12-78); Albumin, Blood 2.9 g/dL (3.4-5.0); Albumin/Globulin Ratio 0.9 (0.8-1.8); Alk Phos 60 U/L (50-136); Anion Gap 8 mmol/L (3-11); Aspartate Aminotrans (AST/SGOT 13 U/L (12-37); Bilirubin, Total 0.3 mg/dL (0.1-1.0); Blood Urea Nitrogen 16 mg/dL (8-24); Bun/Creatinine Ratio 9.7 (12.0-20.0); CHOL/HDL RATIO 3.2; CO2, Blood 26 mmol/L (21-32); Calcium, Blood 8.7 mg/dL (8.5-10.1); Chloride, Blood 106 mmol/L (98-108); Cholesterol 171 mg/dL (50-200); Creatinine, Blood 1.65 mg/dL (0.60-1.20); Globulin, Blood 3.2 g/dL (2.2-4.0); Glomerular Filtration Rate 40 (60-); Glucose, Blood 163 mg/dL (70-99); HDL Cholesterol 53 mg/dL (>39); LDL/HDL RATIO 1.6; Low Density Lipoprotein Chol 87 mg/dL (0-110); Potassium, Blood 4.6 mmol/L (3.5-5.5); Sodium, Blood 135 mmol/L (136-145); Total Protein, Blood 6.1 g/dL (6.4-8.2); Triglycerides 155 mg/dL (30-160); Very Low Density Lipoprot Chol 31 mg/dL (6-32)
[2024-08-31 10:44] LABS: PSA, %Free 41.7 %; PSA, Free 0.199 ng/mL; Prostate Specific Antigen 0.477 ng/mL (0.000-4.000)
== END ==
LOC: LAB SHORT 12:00 → LAB 12:00
PROVIDERS: Nurse Practitioner Family
DX: E11.22 Type 2 diabetes mellitus with diabetic chronic kidney disease (principal); E11.69 Type 2 diabetes mellitus with other specified complication; E11.59 Type 2 diabetes mellitus with other circulatory complications; N18.31 Chronic kidney disease, stage 3a; N40.1 Benign prostatic hyperplasia with lower urinary tract symptoms; Z12.5 Encounter for screening for malignant neoplasm of prostate; I25.119 Atherosclerotic heart disease of native coronary artery with unspecified angina pectoris; Z79.4 Long term (current) use of insulin
CPT/HCPCS: 80053; 80061; 84153; 84154; 85025

== ENCOUNTER → 2024-09-14 | Outpatient (CLI) | payer OTHER ==
[2024-09-14 17:59] LABS: BASOPHILS ABSOLUTE AUTO 0.02 K/mm3 (0.00-0.23); BASOPHILS PERCENT AUTO 0 % (0-2); EOSINOPHILS ABSOLUTE AUTO 0.04 K/mm3 (0.00-0.68); EOSINOPHILS PERCENT AUTO 1 % (0-6); Hemoglobin 9.3 g/dL (13.5-17.5); IMMATURE GRAN ABSOLUTE AUTO 0.02 K/mm3 (0.00-0.10); IMMATURE GRAN PERCENT AUTO 0 % (0-1); LYMPHOCYTES ABSOLUTE AUTO 0.84 K/mm3 (0.84-5.20); LYMPHOCYTES PERCENT AUTO 17 % (21-46); MONOCYTES ABSOLUTE AUTO 0.33 K/mm3 (0.16-1.47); MONOCYTES PERCENT AUTO 7 % (4-13); Mean Corpuscular HGB 27.2 pg (26.0-34.0); Mean Corpuscular HGB Conc 32.1 g/dL (31.5-36.5); Mean Corpuscular Volume 85 fL (80-100); Mean Platelet Volume 10.3 fL (9.1-12.4); NEUTROPHILS ABSOLUTE AUTO 3.74 K/mm3 (1.96-9.15); NEUTROPHILS PERCENT AUTO 75 % (41-73); Platelet Count 324 K/mm3 (150-400); RDW Coefficient Variation 15.8 % (11.7-14.2); RDW Standard Deviation 49.1 fL (35.1-46.3); Red Blood Cell Count 3.42 M/mm3 (4.30-5.90); White Blood Cell Count 4.99 K/mm3 (4.00-11.30)
== END ==
LOC: LAB 15:20 → LAB SHORT 15:20
PROVIDERS: Nurse Practitioner Family
DX: D64.9 Anemia, unspecified (principal)
CPT/HCPCS: 85025

== ENCOUNTER 2024-10-26 18:09 | Emergency (ER) | payer OTHER ==
[~2024-10-26] VITALS: Ht 170.2 cm; Wt 54.4 kg
[2024-10-26 18:19] VITALS: BP 109/61
== END 2024-10-26 18:22 | disposition home or self-care (01) ==
LOC: ER 18:09
DX: S90.512A Abrasion, left ankle, initial encounter (principal); I10 Essential (primary) hypertension; E11.40 Type 2 diabetes mellitus with diabetic neuropathy, unspecified; K21.9 Gastro-esophageal reflux disease without esophagitis; X58.XXXA Exposure to other specified factors, initial encounter; Z79.82 Long term (current) use of aspirin; Z79.84 Long term (current) use of oral hypoglycemic drugs; Z79.4 Long term (current) use of insulin; Z79.899 Other long term (current) drug therapy; Z88.1 Allergy status to other antibiotic agents; Z88.6 Allergy status to analgesic agent
CPT/HCPCS: 99282

== ENCOUNTER → 2025-03-03 | Outpatient (CLI) | payer OTHER ==
[2025-03-03 17:55] LABS: BASOPHILS ABSOLUTE AUTO 0.02 K/mm3 (0.00-0.23); BASOPHILS PERCENT AUTO 0 % (0-2); EOSINOPHILS ABSOLUTE AUTO 0.57 K/mm3 (0.00-0.68); EOSINOPHILS PERCENT AUTO 12 % (0-6); Hematocrit 29.7 % (37.0-53.0); Hemoglobin 9.1 g/dL (13.5-17.5); IMMATURE GRAN ABSOLUTE AUTO 0.02 K/mm3 (0.00-0.10); IMMATURE GRAN PERCENT AUTO 0 % (0-1); LYMPHOCYTES ABSOLUTE AUTO 0.76 K/mm3 (0.84-5.20); LYMPHOCYTES PERCENT AUTO 17 % (21-46); MONOCYTES ABSOLUTE AUTO 0.22 K/mm3 (0.16-1.47); MONOCYTES PERCENT AUTO 5 % (4-13); Mean Corpuscular HGB Conc 30.6 g/dL (31.5-36.5); Mean Corpuscular Volume 86 fL (80-100); NEUTROPHILS ABSOLUTE AUTO 2.99 K/mm3 (1.96-9.15); NEUTROPHILS PERCENT AUTO 65 % (41-73); NRBC ABSOLUTE 0.00 K/mm3 (0.00-0.02); NRBC Auto 0.0 /100 WBC (0.0-0.2); Platelet Count 268 K/mm3 (150-400); RDW Coefficient Variation 15.3 % (11.7-14.2); RDW Standard Deviation 48.1 fL (35.1-46.3)
[2025-03-03 19:32] LABS: Alanine Aminotransfer (ALT/SGP 11.0 U/L (12-78); Albumin, Blood 3.2 g/dL (3.4-5.0); Albumin/Globulin Ratio 0.9 (0.8-1.8); Anion Gap 11.0 mmol/L (3-11); Aspartate Aminotrans (AST/SGOT 10.0 U/L (12-37); Bilirubin, Total 0.5 mg/dL (0.1-1.0); Blood Urea Nitrogen 27.0 mg/dL (8-24); CO2, Blood 23.0 mmol/L (21-32); Calcium, Blood 9.2 mg/dL (8.5-10.1); Chloride, Blood 109.0 mmol/L (98-108); Creatinine, Blood 1.97 mg/dL (0.60-1.20); Globulin, Blood 3.5 g/dL (2.2-4.0); Glucose, Blood 173.0 mg/dL (70-99); Potassium, Blood 4.7 mmol/L (3.5-5.5); Sodium, Blood 138.0 mmol/L (136-145); Total Protein, Blood 6.7 g/dL (6.4-8.2)
== END ==
LOC: LAB SHORT 16:03 → LAB 16:03
PROVIDERS: Nurse Practitioner Family
DX: E11.59 Type 2 diabetes mellitus with other circulatory complications (principal); E11.22 Type 2 diabetes mellitus with diabetic chronic kidney disease; N18.4 Chronic kidney disease, stage 4 (severe); D63.1 Anemia in chronic kidney disease; Z79.4 Long term (current) use of insulin
CPT/HCPCS: 80053; 85025